=== PATIENT | female | born 1970 | race Caucasian/White ===

== ENCOUNTER 2022-02-08 17:45 | Inpatient (IN) ==
[2022-02-08] MEDS ORDERED: Ondansetron 4 MG/2 ML VIAL IVP ONE (17:59)
[2022-02-08] MEDS ORDERED: Morphine Sulfate 2 MG/ML SYRINGE IVP ONE (17:59)
[2022-02-08] MEDS ORDERED: 0.9 % Sodium Chloride 500 ML IVC ONE (17:59)
[2022-02-08 18:12] LABS: Basophils % 0.1 %; Eosinophils % 0.3 %; Hematocrit 41.8 % (35.3-44.9); Hemoglobin 13.8 g/dL (11.5-15.4); Lymphocytes # 0.4 K/mcL (0.6-4.6); Lymphocytes % 3.8 %; Mean Corpuscular Hemoglobin 30.3 pg (28.0-33.3); Mean Corpuscular Volume 91.9 fL (83.0-100.0); Mean Platelet Volume 11.6 fL (9.4-12.4); Monocytes # 0.4 K/mcL (0.0-1.3); Neutrophils # 8.7 K/mcL (1.6-8.9); Platelet Count 179 K/mcL (140-400); Red Blood Count 4.55 M/mcL (3.82-4.97); Red Cell Distribution Width 12.3 % (11.5-14.5); Segmented Neutrophils % 90.8 %; White Blood Count 9.6 K/mcL (4.3-11.1)
[2022-02-08 18:32] LABS: Albumin 4.4 g/dL (3.5-5.7); Albumin/Globulin Ratio 1.5 (1.1-2.2); Bilirubin,Direct 0.1 mg/dL (0.0-0.2); Bilirubin,Indirect 0.7 mg/dL (0.0-1.0); Bilirubin,Total 0.8 mg/dL (0.3-1.0); Calcium 9.3 mg/dL (8.6-10.3); Potassium 3.9 mEq/L (3.5-5.1); Total Protein 7.4 g/dL (6.4-8.9)
[2022-02-08] MEDS ORDERED: MetroNIDAZOLE 500 MG/100 ML 500 MG/100 ML BAG IVPB ONE (18:58)
[2022-02-08] MEDS: 0.9 % Sodium Chloride 1,000 ML IVC SCH (19:07)
[2022-02-08] MEDS ORDERED: Ketorolac 30 MG/ML VIAL IVP ONE (20:44)
[2022-02-08] MEDS ORDERED: Milk and Molasses Enema 200 ML RC ONE (22:14)
[2022-02-08] MEDS ORDERED: Melatonin 3 MG TABLET PO PRN (23:11)
[2022-02-08] MEDS ORDERED: Naloxone 0.4 MG/ML INJ IVP PRN (23:11)
[2022-02-08] MEDS ORDERED: *HR* Dextrose 50 % in Water (Syg) 50 ML SYRINGE IVP PRN (23:57)
[2022-02-08] MEDS ORDERED: Dextrose Gel 15 GM/37.5 ML TUBE PO PRN ×2 (23:57)
[2022-02-08] MEDS ORDERED: D5% in Water 1,000 ML IVC PRN (23:57)
[2022-02-09] MEDS: MetroNIDAZOLE 500 MG/100 ML 500 MG/100 ML BAG IVPB SCH ×3 (02:33→18:01)
[2022-02-09] MEDS: 0.9 % Sodium Chloride 1,000 ML IVC SCH (04:17)
[2022-02-09 06:53] LABS: Hematocrit 30.8 % (35.3-44.9); Hemoglobin 10.1 g/dL (11.5-15.4); Mean Corpuscular HGB Conc 32.8 g/dL (31.6-35.5); Mean Corpuscular Hemoglobin 30.4 pg (28.0-33.3); Mean Corpuscular Volume 92.8 fL (83.0-100.0); Mean Platelet Volume 12.1 fL (9.4-12.4); Platelet Count 132 K/mcL (140-400); Red Blood Count 3.32 M/mcL (3.82-4.97); Red Cell Distribution Width 12.6 % (11.5-14.5)
[2022-02-09 07:18] LABS: Calcium 7.5 mg/dL (8.6-10.3); Magnesium 1.9 mg/dL (1.6-2.6); Phosphorous 1.6 mg/dL (2.7-4.5)
[2022-02-09] MEDS ORDERED: Insulin LISPRO 300 UNITS/3 ML VIAL SUBQ SCH ×2 (07:30→21:00)
[2022-02-09] MEDS ORDERED: 0.9 % Sodium Chloride 500 ML IVC ONE (07:40)
[2022-02-09] MEDS: Ondansetron 4 MG/2 ML VIAL IVP PRN ×2 (09:50→18:00)
[2022-02-09] MEDS: Sennosides/Docusate Sodium TABLET PO SCH ×2 (10:18→21:31)
[2022-02-09] MEDS: Acetaminophen 325 MG TABLET PO PRN ×2 (10:18→17:56)
[2022-02-09] MEDS ORDERED: *HR* LORazepam 0.5 MG TABLET PO PRN (11:16)
[2022-02-09] MEDS: BuPROPion XL (24 HR) 150 MG TABLET PO SCH (12:03)
[2022-02-10] MEDS: MetroNIDAZOLE 500 MG/100 ML 500 MG/100 ML BAG IVPB SCH ×3 (04:03→19:29)
[2022-02-10] MEDS: *HR* Enoxaparin 40 MG/0.4 ML SYRINGE SQ SCH (06:34)
[2022-02-10] MEDS: Acetaminophen 325 MG TABLET PO PRN (06:39)
[2022-02-10] MEDS: Sennosides/Docusate Sodium TABLET PO SCH ×2 (08:45→21:14)
[2022-02-10] MEDS: BuPROPion XL (24 HR) 150 MG TABLET PO SCH (08:45)
[2022-02-10 08:47] LABS: Eosinophils % 0.9 %; Hematocrit 28.8 % (35.3-44.9); Hemoglobin 9.5 g/dL (11.5-15.4); Immature Granulocytes % 1.4 % (0-4); Lymphocytes # 0.7 K/mcL (0.6-4.6); Lymphocytes % 31.3 %; Mean Corpuscular Hemoglobin 30.5 pg (28.0-33.3); Mean Corpuscular Volume 92.6 fL (83.0-100.0); Mean Platelet Volume 12.9 fL (9.4-12.4); Monocytes # 0.2 K/mcL (0.0-1.3); Monocytes % 7.8 %; Neutrophils # 1.3 K/mcL (1.6-8.9); Platelet Count 111 K/mcL (140-400); Red Blood Count 3.11 M/mcL (3.82-4.97); Red Cell Distribution Width 12.6 % (11.5-14.5); Segmented Neutrophils % 58.6 %; White Blood Count 2.2 K/mcL (4.3-11.1)
[2022-02-10 09:19] LABS: BUN/Creatinine Ratio 8 (6-26); Blood Urea Nitrogen 6 mg/dL (6-20); Calcium 7.8 mg/dL (8.6-10.3); Carbon Dioxide 25 mEq/L (23-29); Chloride 108 mEq/L (98-107); Glucose 80 mg/dL (70-105); Magnesium 1.8 mg/dL (1.6-2.6); Osmolality,Calculated 283 (280-300); Potassium 3.7 mEq/L (3.5-5.1); Sodium 138 mEq/L (136-145)
[2022-02-10] MEDS: Ondansetron 4 MG/2 ML VIAL IVP PRN ×2 (10:09→21:42)
[2022-02-10 11:15] LABS: Albumin 3.3 g/dL (3.5-5.7); Albumin/Globulin Ratio 1.5 (1.1-2.2); Bilirubin,Indirect 0.3 mg/dL (0.0-1.0); Bilirubin,Total 0.3 mg/dL (0.3-1.0); Globulin 2.2 g/dL (2.4-3.5); Total Protein 5.5 g/dL (6.4-8.9)
[2022-02-11] MEDS: MetroNIDAZOLE 500 MG/100 ML 500 MG/100 ML BAG IVPB SCH ×3 (04:01→18:12)
[2022-02-11] MEDS: *HR* Enoxaparin 40 MG/0.4 ML SYRINGE SQ SCH (05:06)
[2022-02-11 05:10] LABS: Eosinophils % 1.8 %; Hematocrit 30.3 % (35.3-44.9); Hemoglobin 10.3 g/dL (11.5-15.4); Immature Granulocytes % 5.9 % (0-4); Lymphocytes # 0.7 K/mcL (0.6-4.6); Lymphocytes % 42.4 %; Mean Corpuscular Hemoglobin 30.9 pg (28.0-33.3); Mean Platelet Volume 12.1 fL (9.4-12.4); Monocytes # 0.2 K/mcL (0.0-1.3); Monocytes % 10.6 %; Neutrophils # 0.7 K/mcL (1.6-8.9); Platelet Count 133 K/mcL (140-400); Red Blood Count 3.33 M/mcL (3.82-4.97); Red Cell Distribution Width 12.6 % (11.5-14.5); Segmented Neutrophils % 39.3 %; White Blood Count 1.7 K/mcL (4.3-11.1)
[2022-02-11 05:22] LABS: Alanine Aminotransferase 6 Units/L (7-52); Albumin 3.5 g/dL (3.5-5.7); Albumin/Globulin Ratio 1.4 (1.1-2.2); Alkaline Phosphatase 35 Units/L (34-104); Aspartate Amino Transferase 11 Units/L (13-39); BUN/Creatinine Ratio 5 (6-26); Bilirubin,Indirect 0.3 mg/dL (0.0-1.0); Bilirubin,Total 0.3 mg/dL (0.3-1.0); Blood Urea Nitrogen 4 mg/dL (6-20); Calcium 8.2 mg/dL (8.6-10.3); Carbon Dioxide 24 mEq/L (23-29); Chloride 108 mEq/L (98-107); Globulin 2.5 g/dL (2.4-3.5); Glucose 81 mg/dL (70-105); Osmolality,Calculated 284 (280-300); Potassium 3.7 mEq/L (3.5-5.1); Sodium 139 mEq/L (136-145)
[2022-02-11 07:18] LABS: Platelet Estimate Decreased (Normal)
[2022-02-11] MEDS: Ondansetron 4 MG/2 ML VIAL IVP PRN ×2 (09:49→22:05)
[2022-02-11] MEDS: Sennosides/Docusate Sodium TABLET PO SCH ×2 (09:53→19:56)
[2022-02-11] MEDS: BuPROPion XL (24 HR) 150 MG TABLET PO SCH (09:53)
[2022-02-11] MEDS ORDERED: MOM Conc 10 ML UD.LIQ PO PRN (10:18)
[2022-02-11] MEDS ORDERED: Milk and Molasses Enema 200 ML RC ONE (20:00)
[2022-02-12] MEDS: MetroNIDAZOLE 500 MG/100 ML 500 MG/100 ML BAG IVPB SCH (02:55)
[2022-02-12] MEDS: *HR* Enoxaparin 40 MG/0.4 ML SYRINGE SQ SCH (06:14)
[2022-02-12 07:18] VITALS: BP 113/76; PULSE 74; RESP 15; TEMP 98.3; O2SAT 98
[2022-02-12 07:43] LABS: BUN/Creatinine Ratio 6 (6-26); Blood Urea Nitrogen 5 mg/dL (6-20); Calcium 8.6 mg/dL (8.6-10.3); Carbon Dioxide 22 mEq/L (23-29); Chloride 106 mEq/L (98-107); Glucose 87 mg/dL (70-105); Magnesium 1.9 mg/dL (1.6-2.6); Osmolality,Calculated 279 (280-300); Potassium 3.8 mEq/L (3.5-5.1); Sodium 136 mEq/L (136-145)
[2022-02-12 07:54] LABS: Eosinophils % 1.1 %; Hematocrit 32.4 % (35.3-44.9); Hemoglobin 10.9 g/dL (11.5-15.4); Immature Granulocytes % 0.6 % (0-4); Lymphocytes # 0.7 K/mcL (0.6-4.6); Lymphocytes % 39.1 %; Mean Corpuscular HGB Conc 33.6 g/dL (31.6-35.5); Mean Platelet Volume 12.5 fL (9.4-12.4); Monocytes # 0.2 K/mcL (0.0-1.3); Monocytes % 12.3 %; Neutrophils # 0.8 K/mcL (1.6-8.9); Platelet Count 133 K/mcL (140-400); Red Blood Count 3.52 M/mcL (3.82-4.97); Red Cell Distribution Width 12.8 % (11.5-14.5); Segmented Neutrophils % 46.9 %; White Blood Count 1.8 K/mcL (4.3-11.1)
[2022-02-12] MEDS: BuPROPion XL (24 HR) 150 MG TABLET PO SCH (09:14)
[2022-02-12] MEDS: Sennosides/Docusate Sodium TABLET PO SCH (09:14)
[2022-02-12] MEDS: Ondansetron 4 MG/2 ML VIAL IVP PRN (09:34)
[2022-02-12] MEDS ORDERED: metroNIDAZOLE 500 MG TABLET PO SCH (10:45)
== END 2022-02-12 13:03 | disposition home or self-care (01) | DRG 392 ==
LOC: INPPIK 17:45 → EMEROOPIK 17:45 → INPPIK 22:57
PROVIDERS: ADMIT Internal Medicine; ATTEND Internal Medicine